=== PATIENT | male | born 1975 | race Caucasian/White ===

== ENCOUNTER 2019-07-26 21:42 | Emergency (ER) | payer OTHER ==
[~2019-07-26] VITALS: Ht 180.3 cm; Wt 95.3 kg
[2019-07-26 22:53] LABS: CALCIUM 8.6 mg/dL (8.5-10.1); CREATININE 1.6 mg/dL (0.6-1.3); POTASSIUM 3.8 mmol/L (3.5-5.1)
[2019-07-26 22:57] LABS: ALBUMIN 4.7 g/dL (3.4-5.0); TOTAL BILIRUBIN 1.3 mg/dL (<0.1-1.0); TOTAL PROTEIN 8.6 g/dL (6.4-8.2)
[2019-07-26 23:06] LABS: ABSOLUTE EOSINOPHILS 0.1 thou/uL (0.0-0.7); ABSOLUTE LYMPHOCYTES 0.7 thou/uL (0.8-5.3); ABSOLUTE MONOCYTES 0.8 thou/uL (0.0-1.2); ABSOLUTE NEUTROPHILS 7.7 thou/uL (1.6-8.1); BASOPHILS 0.5 %; EOSINOPHILS 0.6 %; HEMATOCRIT 51.9 % (42.0-52.0); HEMOGLOBIN 18.2 gm/dL (14.0-18.0); MCH 32.1 pg (26.0-34.0); MCHC 35.1 g/dL (28.0-37.0); MCV 91.6 fL (80.0-100.0); MONOCYTES 8.3 %; MPV 7.7 fl. (7.2-11.1); NUCLEATED RBCS 0 /100WBC; PLATELET COUNT* 247 thou/uL (150-400); POLYS 82.6 %; RBC 5.67 mil/uL (4.50-6.00); RDW-CV 14.2 % (10.5-14.5); WBC 9.3 thou/uL (4.0-11.0)
[2019-07-26 23:54] LABS: URINE BILIRUBIN NEGATIVE (Negative); URINE BLOOD NEGATIVE (Negative); URINE CLARITY CLEAR; URINE COLOR YELLOW; URINE GLUCOSE-RANDOM NEGATIVE (Negative); URINE KETONES NEGATIVE (Negative); URINE LEUKOCYTES-REFLEX NEGATIVE (Negative); URINE NITRITE-REFLEX NEGATIVE (Negative); URINE PROTEIN NEGATIVE (Negative); URINE SPECIFIC GRAVITY 1.015 (1.005-1.030); URINE UROBILINOGEN 0.2 E.U./dl (0.2-1.0)
[2019-07-27] LABS: AMP/METHAMP POSITIVE (Negative); BARBITURATES Negative (Negative); BENZODIAZEPINES Negative (Negative); COCAINE Negative (Negative); METHADONE Negative (Negative); OPIATES Negative (Negative); PCP Negative (Negative); THC Negative (Negative)
[2019-07-27 00:13] VITALS: BP 169/86
--- NOTE | 2019-07-28 12:11 | EKG ---
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: : 1975 Requested By: Jerome Hogan Order Number: [id number] MD: Jesu Rossi Measurements Intervals [place] Rate: 123 P: 55 IN: 143 QRS: -83 QRSD: 89 T: 30 QT: 310 QTc: 444 Interpretive Statements Sinus tachycardia Left atrial enlargement LAD, consider left anterior fascicular block incomplete RBBB No previous ECG available for comparison Electronically Signed On 07-28-2019 12:09:41 CDT by Jesu Rossi [email or web address] <ELECTRONICALLY SIGNED> By: Jesu Rossi MD, [facility] 07/28/19 1209 [id number] Jesu Rossi MD, [facility] /EPI
== END 2019-07-27 00:14 | disposition home or self-care (01) ==
LOC: M.ERS 21:42
PROVIDERS: Emergency Medicine Emergency Medical Services
DX: S00.01XA Abrasion of scalp, initial encounter (principal); F19.10 Other psychoactive substance abuse, uncomplicated; F41.9 Anxiety disorder, unspecified; Z88.8 Allergy status to other drugs, medicaments and biological substances; V49.9XXA Car occupant (driver) (passenger) injured in unspecified traffic accident, initial encounter; Y93.89 Activity, other specified; Y92.89 Other specified places as the place of occurrence of the external cause; Y99.8 Other external cause status